=== PATIENT | male | born 1985 | race Caucasian/White ===

== ENCOUNTER 2024-03-21 15:02 | Emergency (ER) | payer BC, SELFPAY ==
--- NOTE | 2024-03-21 15:05 | ED.SKABFB ---
HPI - Skin/Abscess/Foreign Bdy General Chief complaint: Skin/Abscess/Foreign Body Stated complaint: skin infection on back Time Seen by Provider: 03/21/24 15:05 Source: patient Mode of arrival: ambulatory Limitations: no limitations History of Present Illness HPI narrative: Giovanni is a 39-year-old male patient presenting to the clinic today of possible infected cyst on his back. He reports he has had this cyst for a couple years and seen his primary care doctor for this and they told him that would be an elective procedure to have a removed and not to worry about less a became infected. States that is becoming more painful and red over the last day or 2. No fever or chills. Related Data Allergies Allergy/AdvReac Type Severity Reaction Status Date / Time No Known Allergies Allergy Verified 03/21/24 15:12 Review of Systems Review of Systems: Pertinent positives per HPI. Patient denies any fever, chills, rash, headache, visual changes, dizziness, cough, runny nose, sore throat, shortness of breath, chest pain, palpitations, nausea, vomiting, diarrhea, constipation, abdominal pain, or any urinary issues. PMFSH Family History Family History Grandparent Family history of heart disease in male family member before age 55 Other Diabetes mellitus Social History Social History Smoking status: Former smoker Alcohol intake: current Substance use: never Lack of Transportation: No Lack of Food: Never True Current Housing: I Have Housing Concerned About Future Housing: No Difficulty Paying Gas/Electric Bills: No Difficulty Paying for Meds: No Currently Unemployed: No Education: Bachelor's Degree Difficulty w/ Childcare or Family Care: No Comments At the time of my signature, I reviewed and agree with the nursing past medical, surgical, social, and family history. There is no relevant family history pertinent to the patient complaint. Exam Narrative: General: Well-developed, well nourished, in no apparent distress Head: Normocephalic, atraumatic. Cardio: Regular rate and rhythm, s1 and s2 normal, no murmur appreciated. Resp: Clear to auscultation bilaterally, no rhonchi, rales, wheezing or rubs. Integumentary: [place], warm, and dry, 4 x 5.5 cm red, swollen, tender, mild flexion cyst to the upper midback Course Course Emergency Course: Portions of this record may have been created with voice recognition software. Level of Care: Express Care Visit Vital Signs Vital signs: Vital Signs Temperature 36.5 C 03/21/24 15:11 Pulse Rate 96 03/21/24 15:11 Respiratory Rate 18 03/21/24 15:11 Blood Pressure 124/72 03/21/24 15:11 Pulse Oximetry 96 03/21/24 15:11 Oxygen Delivery Room Air 03/21/24 15:11 Temperature 36.5 C 03/21/24 15:12 Pulse Rate 96 03/21/24 15:12 Respiratory Rate 18 03/21/24 15:12 Blood Pressure 124/72 03/21/24 15:12 Pulse Oximetry 96 03/21/24 15:12 Oxygen Delivery Room Air 03/21/24 15:12 Vital signs reviewed Procedures Abscess I/D back: Date of Incision: 03/21/24 Local Anesthetic: lidocaine 1% and with epi Amount of anesthesia used (mL): 5 Technique: incised with #11 blade Amount of fluid expressed (mL): 5 Irrigation: No Packing used?: iodoform (Quarter-inch) I&D Results: Pus and Blood Complications: other (None) Abcess I&D Additional Comments: Verbal consent obtained for incision and drainage. Risk and benefits explained and patient voiced understanding. Area was cleansed with betadine. Area was prepped and draped using sterile technique. 27 gauge needle was then used to instill (5) ml of lidocaine with epi into the wound edges. Patient tolerated well and anesthesia was appropriate. An 11 blade scalpel was then used to make a 1 cm incision over the absc
[2024-03-21 15:11] VITALS: BP 124/72; PULSE 96; RESP 18; TEMP 36.5; O2SAT 96
[2024-03-21 15:12] VITALS: BP 124/72; PULSE 96; RESP 18; TEMP 36.5; O2SAT 96
[2024-03-21] MEDS: LIDO 1%/EPINEPHRINE 1:100,000 20 ML VIAL 10 ML INFILTRATE (15:24)
== END 2024-03-21 15:55 | disposition home or self-care (01) ==
PROVIDERS: Emergency Provider Nurse Practitioner Family; Referring Provider Emergency Medicine
DX: L72.9 Follicular cyst of the skin and subcutaneous tissue, unspecified (principal); Z87.891 Personal history of nicotine dependence
CPT/HCPCS: 10060; 87070; 87205; 99213; G0463

== ENCOUNTER 2024-03-23 16:35 | Emergency (ER) | payer BC, SELFPAY ==
[2024-03-23 16:44] VITALS: BP 127/76; PULSE 84; RESP 18; TEMP 36.1; O2SAT 100
--- NOTE | 2024-03-23 16:44 | ED.SKABFB ---
HPI - Skin/Abscess/Foreign Bdy General Chief complaint: Skin/Abscess/Foreign Body Stated complaint: removal of skin barrier Time Seen by Provider: 03/23/24 16:44 History of Present Illness HPI narrative: 39-year-old male presents to have packing removed from cyst of upper back. Was seen at [facility] 2 days ago. Had I&D of cyst due to infection. Is currently taking clindamycin. Has appointment with gang pusher in 3 weeks. All systems reviewed and negative except as noted above. Related Data Allergies Allergy/AdvReac Type Severity Reaction Status Date / Time No Known Allergies Allergy Verified 03/23/24 16:38 Review of Systems Review of Systems: CONSTITUTIONAL: Denies fever, chills, or sweats. EYES: Denies visual changes, redness, or discharge. ENT: Denies rhinorrhea, congestion, sore throat, or otalgia. CARDIOVASCULAR: Denies chest pain, palpitations, or edema. RESPIRATORY: Denies cough or dyspnea. GASTROINTESTINAL: Denies abdominal pain, nausea, vomiting, or diarrhea. GENITOURINARY: Denies dysuria or hematuria. SKIN: Denies rash or itching. Needs packing removed from upper back cyst. MUSCULOSKELETAL: Denies back pain, joint pain, or myalgia. NEUROLOGIC: Denies headache, numbness, or weakness. PSYCHIATRIC: Denies anxiety or depression. All other systems reviewed are negative, except as documented in HPI. PMFSH Family History Family History Grandparent Family history of heart disease in male family member before age 55 Other Diabetes mellitus Social History Social History Smoking status: Former smoker Alcohol intake: current Substance use: never Lack of Transportation: No Lack of Food: Never True Current Housing: I Have Housing Concerned About Future Housing: No Difficulty Paying Gas/Electric Bills: No Difficulty Paying for Meds: No Currently Unemployed: No Education: Bachelor's Degree Difficulty w/ Childcare or Family Care: No Comments At time of signature, agree with nursing past medical, surgical, social and family history. There is no relevant family history pertinent to the presenting complaint. Exam Narrative: GENERAL: This is a well-nourished, well-developed patient, in no apparent distress. HEAD: normocephalic, atraumatic. EYES: PERRL. Sclera clear/white. Vision is grossly intact. EARS: External ears normal NOSE: External nose normal NECK: Neck supple, non-tender without lymphadenopathy, masses or thyromegaly. CARDIOVASCULAR: Regular rate and rhythm without murmurs, gallops, or rubs. RESPIRATORY: Clear to auscultation. Breath sounds equal bilaterally. No wheezes, rales, or rhonchi. SKIN: warm, Dry, intact with no suspicious lesions or rash, good texture and turgor. Cyst to upper back approximately 2 cm diameter. Erythematous with induration. No fluctuance. Scant purulent drainage. NEURO: awake, alert, and oriented to person, place and time. There were no obvious focal neurologic abnormalities. EXTREMITIES: No joint tenderness, effusion, or edema noted. Course Course Level of Care: Express Care Visit Vital Signs Vital signs: Vital Signs Temperature 36.1 C L 03/23/24 16:44 Pulse Rate 84 03/23/24 16:44 Respiratory Rate 18 03/23/24 16:44 Blood Pressure 127/76 03/23/24 16:44 Pulse Oximetry 100 03/23/24 16:44 Oxygen Delivery Room Air 03/23/24 16:44 Temperature 36.1 C L 03/23/24 16:44 Pulse Rate 84 03/23/24 16:44 Respiratory Rate 18 03/23/24 16:44 Blood Pressure 127/76 03/23/24 16:44 Pulse Oximetry 100 03/23/24 16:44 Oxygen Delivery Room Air 03/23/24 16:44 Reviewed MDM - Skin/Abscess/Foreign Bdy MDM Narrative Medical decision making narrative: Patient is aware of diagnosis, understands and agrees to treatment plan. Anticipatory guidance given. Patient agrees to follow-up as direc
== END 2024-03-23 16:53 | disposition home or self-care (01) ==
PROVIDERS: Emergency Provider Nurse Practitioner Family; PCP Family Medicine
DX: Z48.01 Encounter for change or removal of surgical wound dressing (principal); Z87.891 Personal history of nicotine dependence
CPT/HCPCS: 99211; G0463